=== PATIENT | male | born 1940 | race Asian ===

== ENCOUNTER → 2018-02-28 | Outpatient (CLI) | payer MEDICARE, OTHER ==
[~2018-02-28] MED LIST: ALLO100T30 PO; AMLO5TAB2 PO; ASPI-13 PO; ATOR20TA PO; CARV12.52 PO; CARV3.122 PO; CLOP75TA52 PO; FENO135C; GEMF600T3; GEMF600T3 PO; GLIP5TAB PO; LOSA25TA5 PO; OMEG10007 PO; VALS160T3; VIT1TABL3
== END | disposition home or self-care (01) ==
LOC: CFH 10:09
PROVIDERS: ATTEND Internal Medicine
DX: I25.10 Atherosclerotic heart disease of native coronary artery without angina pectoris (principal); R06.02 Shortness of breath
CPT/HCPCS: 71250